=== PATIENT | male | born 1960 | race Caucasian/White ===

== ENCOUNTER → 2019-07-18 | Outpatient (CLI) | payer OTHER ==
[~2019-07-18] MED LIST: OMNIPAQUE 350 MG/ML, 75ML BOTTLE ONE
== END | disposition home or self-care (01) ==
LOC: CFH 08:18
PROVIDERS: ATTEND Internal Medicine Hematology & Oncology
DX: C20 Malignant neoplasm of rectum (principal); K76.0 Fatty (change of) liver, not elsewhere classified; I25.10 Atherosclerotic heart disease of native coronary artery without angina pectoris; M25.78 Osteophyte, vertebrae; N28.1 Cyst of kidney, acquired
CPT/HCPCS: 71260; Q9967

== ENCOUNTER → 2019-07-30 | Outpatient (CLI) | payer OTHER ==
[~2019-07-30] MED LIST changes: +GLIP10TA13 PO; +LISI-170 PO; +METF1000 PO; -OMNIPAQUE 350 MG/ML, 75ML BOTTLE ONE; +PRAV10TA2 PO
== END | disposition home or self-care (01) ==
LOC: WOUND 08:07
PROVIDERS: ATTEND Nurse Practitioner Family
DX: K94.19 Other complications of enterostomy (principal); Z85.038 Personal history of other malignant neoplasm of large intestine
CPT/HCPCS: 99203

== ENCOUNTER 2019-08-01 07:27 | Inpatient (IN) | payer OTHER ==
[~2019-08-01] VITALS: Ht 185.4 cm; Wt 90.0 kg
[2019-08-01] MEDS ORDERED: MIDAZOLAM 1 MG/ML, 2ML ONE (07:37)
[2019-08-01] MEDS ORDERED: FENTANYL PF 250 MCG/5ML ONE ×2 (07:38→12:26)
[2019-08-01] MEDS ORDERED: NEOSTIGMINE 1 MG/ML, 10ML ONE (07:43)
[2019-08-01] MEDS ORDERED: PROPOFOL 10 MG/ML, 20ML ONE (07:43)
[2019-08-01] MEDS ORDERED: ROCURONIUM 10MG/ML,5ML ONE ×2 (07:43→13:58)
[2019-08-01] MEDS ORDERED: GLYCOPYRROLATE 0.2MG/1ML, 5ML ONE (07:43)
[2019-08-01 08:19] VITALS: BP 115/81
[2019-08-01] MEDS ORDERED: LACTATED RINGERS 1,000 ML IV SCH (08:23)
[2019-08-01] MEDS ORDERED: GABAPENTIN 300 MG CAPSULE PO ONE (08:30)
[2019-08-01] MEDS ORDERED: ACETAMINOPHEN 500 MG TABLET PO ONE (08:30)
[2019-08-01] MEDS ORDERED: BUPIVACAINE/PF 0.5% ONE (11:14)
[2019-08-01] MEDS ORDERED: EPINEPHRINE 1 MG/ML, 1ML ONE (11:14)
[2019-08-01] MEDS ORDERED: MORPHINE SULFATE 4 MG/ML, 1ML IVPush PRN ×2 (11:30→18:00)
[2019-08-01] MEDS ORDERED: MEPERIDINE/PF 25MG/ML,1ML IVPush PRN (11:30)
[2019-08-01] MEDS ORDERED: FENTANYL PF 100 MCG/2ML IV PRN (11:30)
[2019-08-01] MEDS ORDERED: ONDANSETRON 2MG/ML, 2ML IV PRN ×2 (11:30→18:00)
[2019-08-01] MEDS ORDERED: hydrALAzine 20 MG/ML, 1ML IV PRN (11:30)
[2019-08-01] MEDS ORDERED: OXYcodone 5 MG/5 ML ORAL.SOL UDC PO PRN (11:30)
[2019-08-01] MEDS ORDERED: LABETALOL 5MG/ML, 20ML IV PRN (11:30)
[2019-08-01] MEDS ORDERED: CEFOTETAN 2 GM ONE (11:35)
[2019-08-01] MEDS ORDERED: METOPROLOL 1 MG/ML, 5ML ONE (12:17)
[2019-08-01] MEDS ORDERED: HYDROmorphone 1 MG/ML, 1ML INJ ONE ×2 (14:59→15:33)
[2019-08-01] MEDS ORDERED: MEPERIDINE/PF 25MG/ML,1ML ONE (15:00)
[2019-08-01] MEDS ORDERED: INDOCYANINE GREEN 25 MG VIAL ONE (15:06)
[2019-08-01] MEDS: HYDROmorphone 2 MG/ML, 1ML IVPush PRN ×3 (15:15→15:39)
[2019-08-01] MEDS ORDERED: LABETALOL 5 MG/ML SYR. (IV ONLY) IV PRN (15:30)
[2019-08-01] MEDS ORDERED: FENTANYL PF 100 MCG/2ML ONE (15:35)
[2019-08-01] MEDS ORDERED: OXYcodone 5 MG/5 ML ORAL.SOL UDC ONE (15:36)
[2019-08-01] MEDS ORDERED: DIPHENHYDRAMINE 50 MG/ML, 1ML IVPush PRN (18:00)
[2019-08-01] MEDS ORDERED: DEXAMETHASONE 4 MG/ML, 1ML IVPush PRN (18:00)
[2019-08-01] MEDS ORDERED: TRAZODONE 50MG TABLET PO PRN (18:00)
[2019-08-01] MEDS ORDERED: LORazepam 1MG TABLET PO PRN (18:00)
[2019-08-01] MEDS ORDERED: CALCIUM CARBONATE 500 MG TAB.CHEW PO PRN (18:00)
[2019-08-01] MEDS ORDERED: DIPHENHYDRAMINE 25 MG CAPSULE PO PRN (18:00)
[2019-08-01] MEDS ORDERED: SCOPOLAMINE PATCH, 1.5MG PATCH.TD72 TD PRN (18:00)
[2019-08-01] MEDS ORDERED: LORazepam 2 MG/ML, 1ML IVPush PRN (18:00)
[2019-08-01] MEDS ORDERED: HALOPERIDOL 5 MG/ML IVPush PRN (18:00)
[2019-08-01] MEDS: KETOROLAC 30 MG/1 ML IVPush SCH (18:16)
[2019-08-01] MEDS: ACETAMINOPHEN 500 MG TABLET PO SCH (18:17)
[2019-08-01 18:55] VITALS: BP 112/78
[2019-08-01] MEDS: OXYcodone IR 5MG TABLET PO PRN (20:35)
[2019-08-01] MEDS: LACTATED RINGERS 1,000 ML IV SCH (23:00)
[2019-08-01 23:39] VITALS: BP 114/77
[2019-08-02] MEDS: KETOROLAC 30 MG/1 ML IVPush SCH ×4 (00:35→17:55)
[2019-08-02] MEDS: ACETAMINOPHEN 500 MG TABLET PO SCH ×4 (00:35→17:55)
[2019-08-02 03:26] VITALS: BP 110/73
[2019-08-02 03:53] LABS: ANION GAP 5 mmol/L (5-15); CHLORIDE 106 mmol/L (98-107); CREATININE 1.38 mg/dL (0.7-1.3)
[2019-08-02 04:02] LABS: BASOPHILS # (AUTO) 0.02 x10^3/uL (0-0.1); BASOPHILS % (AUTO) 0 % (0-1); EOSINOPHILS # (AUTO) 0.04 x10^3/uL (0-0.4); EOSINOPHILS % (AUTO) 1 % (1-7); LYMPHOCYTES # (AUTO) 1.31 x10^3/uL (1-3.4); LYMPHOCYTES % (AUTO) 19 % (22-44); MD NO; MEAN CORPUSCULAR HEMOGLOBIN 35.2 pg (27.5-34.5); MEAN CORPUSCULAR HGB CONC 33.3 g/dL (33.2-36.2); MEAN CORPUSCULAR VOLUME 105.8 fL (81-97); MEAN PLATELET VOLUME 8.6 fL (7.4-10.4); MONOCYTES # (AUTO) 1.02 x10^3/uL (0.2-0.8); MONOCYTES % (AUTO) 15 % (2-9); NEUTROPHILS # (AUTO) 4.46 x10^3/uL (1.8-6.8); NEUTROPHILS % (AUTO) 65 % (42-75); PLATELET COUNT 129 x10^3/uL (130-400); RED BLOOD COUNT 4.23 x10^6/uL (4.38-5.82); RED CELL DISTRIBUTION WIDTH 12.2 % (9.4-14.8)
[2019-08-02] MEDS: OXYcodone IR 5MG TABLET PO PRN ×4 (04:10→21:31)
[2019-08-02 07:20] VITALS: BP 111/72
[2019-08-02] MEDS: ENOXAPARIN 40 MG/0.4 ML SQ SCH (09:06)
[2019-08-02 14:43] VITALS: BP 115/76
[2019-08-02] MEDS: LACTATED RINGERS 1,000 ML IV SCH (17:59)
[2019-08-02 19:38] VITALS: BP 117/76
[2019-08-03] MEDS: ACETAMINOPHEN 500 MG TABLET PO SCH ×4 (00:43→17:06)
[2019-08-03] MEDS: KETOROLAC 30 MG/1 ML IVPush SCH ×4 (00:43→17:06)
[2019-08-03 02:13] VITALS: BP 110/72
[2019-08-03 03:20] LABS: BASOPHILS # (AUTO) 0.03 x10^3/uL (0-0.1); BASOPHILS % (AUTO) 1 % (0-1); EOSINOPHILS # (AUTO) 0.14 x10^3/uL (0-0.4); EOSINOPHILS % (AUTO) 3 % (1-7); LYMPHOCYTES # (AUTO) 1.56 x10^3/uL (1-3.4); LYMPHOCYTES % (AUTO) 28 % (22-44); MD NO; MEAN CORPUSCULAR HEMOGLOBIN 35.6 pg (27.5-34.5); MEAN CORPUSCULAR HGB CONC 33.7 g/dL (33.2-36.2); MEAN CORPUSCULAR VOLUME 105.5 fL (81-97); MEAN PLATELET VOLUME 8.5 fL (7.4-10.4); MONOCYTES # (AUTO) 0.77 x10^3/uL (0.2-0.8); MONOCYTES % (AUTO) 14 % (2-9); NEUTROPHILS # (AUTO) 3.06 x10^3/uL (1.8-6.8); NEUTROPHILS % (AUTO) 55 % (42-75); PLATELET COUNT 111 x10^3/uL (130-400); RED BLOOD COUNT 3.69 x10^6/uL (4.38-5.82); RED CELL DISTRIBUTION WIDTH 12.3 % (9.4-14.8)
[2019-08-03 03:28] LABS: ANION GAP 4 mmol/L (5-15); CALCIUM 8.7 mg/dL (8.5-10.1); CHLORIDE 106 mmol/L (98-107)
[2019-08-03 03:30] LABS: CREATININE 1.04 mg/dL (0.7-1.3)
[2019-08-03 07:55] VITALS: BP 112/75
[2019-08-03] MEDS: OXYcodone IR 5MG TABLET PO PRN ×3 (08:20→21:10)
[2019-08-03] MEDS: ENOXAPARIN 40 MG/0.4 ML SQ SCH (08:20)
[2019-08-03 14:16] VITALS: BP 129/76
[2019-08-03] MEDS: LACTATED RINGERS 1,000 ML IV SCH (14:17)
[2019-08-03 20:00] VITALS: BP 132/77
[2019-08-04] MEDS: ACETAMINOPHEN 500 MG TABLET PO SCH ×2 (00:18→06:11)
[2019-08-04] MEDS: KETOROLAC 30 MG/1 ML IVPush SCH ×2 (00:18→06:11)
[2019-08-04] MEDS: OXYcodone IR 5MG TABLET PO PRN ×3 (00:24→09:48)
[2019-08-04 01:50] VITALS: BP 120/81
[2019-08-04 03:35] LABS: BASOPHILS # (AUTO) 0.02 x10^3/uL (0-0.1); BASOPHILS % (AUTO) 0 % (0-1); EOSINOPHILS # (AUTO) 0.18 x10^3/uL (0-0.4); EOSINOPHILS % (AUTO) 3 % (1-7); LYMPHOCYTES # (AUTO) 1.56 x10^3/uL (1-3.4); LYMPHOCYTES % (AUTO) 30 % (22-44); MD NO; MEAN CORPUSCULAR HEMOGLOBIN 34.7 pg (27.5-34.5); MEAN CORPUSCULAR HGB CONC 33.4 g/dL (33.2-36.2); MEAN CORPUSCULAR VOLUME 103.8 fL (81-97); MONOCYTES % (AUTO) 13 % (2-9); NEUTROPHILS # (AUTO) 2.76 x10^3/uL (1.8-6.8); NEUTROPHILS % (AUTO) 53 % (42-75); PLATELET COUNT 120 x10^3/uL (130-400); RED CELL DISTRIBUTION WIDTH 12.3 % (9.4-14.8)
[2019-08-04 03:44] LABS: ANION GAP 4 mmol/L (5-15); CALCIUM 8.8 mg/dL (8.5-10.1); CHLORIDE 109 mmol/L (98-107); CREATININE 0.92 mg/dL (0.7-1.3)
[2019-08-04 07:48] VITALS: BP 115/75
[2019-08-04] MEDS: ENOXAPARIN 40 MG/0.4 ML SQ SCH (08:12)
[2019-08-04] MEDS ORDERED: OXYC-302 PO (09:34)
[2019-08-04] MEDS ORDERED: IBUP-1222 PO (09:35)
[2019-08-04] MEDS ORDERED: LOPE-114 PO (09:36)
[2019-08-04] MEDS: LACTATED RINGERS 1,000 ML IV SCH (11:29)
== END 2019-08-04 11:49 | disposition home or self-care (01) | DRG 331 ==
LOC: ORIP 07:27 → 4NE 16:54
PROVIDERS: ADMIT Colon & Rectal Surgery; ATTEND Colon & Rectal Surgery
PROC: 0DTN0ZZ Resection of Sigmoid Colon, Open Approach (ICD-10-PCS; 2019-08-01)
PROC: 8E0W0CZ Robotic Assisted Procedure of Trunk Region, Open Approach (ICD-10-PCS; 2019-08-01)
PROC: 3E0T3BZ Introduction of Anesthetic Agent into Peripheral Nerves and Plexi, Percutaneous Approach (ICD-10-PCS; 2019-08-01)
PROC: 0DBB0ZZ Excision of Ileum, Open Approach (ICD-10-PCS; principal; 2019-08-01 09:30)
DX: C20 Malignant neoplasm of rectum (principal); E11.9 Type 2 diabetes mellitus without complications; I10 Essential (primary) hypertension; E78.5 Hyperlipidemia, unspecified; E78.00 Pure hypercholesterolemia, unspecified; M19.90 Unspecified osteoarthritis, unspecified site; Z83.3 Family history of diabetes mellitus; Z82.3 Family history of stroke; Z82.49 Family history of ischemic heart disease and other diseases of the circulatory system; Z87.891 Personal history of nicotine dependence
CPT/HCPCS: 36415; J3490; S0020; 80048; 82962; 83735; 85025; 86850; 86900; 88309; 93005; C1729; G0378; J0171; J1170; J1650; J1885; J2250; J2704; J2710; J3010; J2175; J7120

== ENCOUNTER → 2019-08-09 | Outpatient (CLI) | payer OTHER ==
[~2019-08-09] MED LIST changes: +IBUP-1222 PO; +LOPE-114 PO; +OXYC-302 PO
== END | disposition home or self-care (01) ==
LOC: WOUND 12:56
PROVIDERS: ATTEND Family Medicine
DX: K94.19 Other complications of enterostomy (principal); Z85.038 Personal history of other malignant neoplasm of large intestine
CPT/HCPCS: 99212

== ENCOUNTER → 2019-10-14 | Outpatient (CLI) | payer OTHER | END | disposition home or self-care (01) | LOC: RAD 12:32 | PROVIDERS: ATTEND Colon & Rectal Surgery | DX: N20.0 Calculus of kidney (principal); M16.11 Unilateral primary osteoarthritis, right hip | CPT/HCPCS: 74270 ==

== ENCOUNTER 2019-10-25 08:32 | Outpatient (CLI) | payer OTHER | END 2019-10-25 23:59 | disposition home or self-care (01) | LOC: STAR 08:32 | PROVIDERS: ATTEND Colon & Rectal Surgery | DX: Z02.9 Encounter for administrative examinations, unspecified (principal) ==

== ENCOUNTER 2020-01-28 10:50 | Outpatient (CLI) | payer OTHER ==
[2020-01-28] MEDS ORDERED: LISI-167 PO (11:33)
[2020-01-28 11:54] LABS: ALBUMIN 4.2 g/dL (3.4-5.0); ANION GAP 7 mmol/L (5-15); CALCIUM 9.3 mg/dL (8.5-10.1); CHLORIDE 104 mmol/L (98-107)
[2020-01-28 11:57] LABS: ALANINE AMINOTRANSFERASE 52 U/L (12-78); ALKALINE PHOSPHATASE 66 U/L (45-117); BILIRUBIN,TOTAL 0.7 mg/dL (0.2-1.0); CREATININE 1.06 mg/dL (0.7-1.3)
== END 2020-01-28 23:59 | disposition home or self-care (01) ==
LOC: STAR 10:50
PROVIDERS: ATTEND Colon & Rectal Surgery
DX: Z01.818 Encounter for other preprocedural examination (principal); Z93.2 Ileostomy status
CPT/HCPCS: 36415; 80053; 93005

== ENCOUNTER 2020-02-06 06:54 | Inpatient (IN) | payer OTHER ==
[~2020-02-06] VITALS: Ht 185.4 cm; Wt 91.0 kg
[~2020-02-06 06:54] MED LIST changes: +BUPIVACAINE/EPI 0.5% 1:200K ONE; +LISI-167 PO
[2020-02-06] MEDS ORDERED: LACTATED RINGERS 1,000 ML IV SCH ×2 (07:07→11:30)
[2020-02-06] MEDS ORDERED: CHLORHEXIDINE 15 ML UDC MM STA (07:07)
[2020-02-06] MEDS ORDERED: CHLORHEXIDINE 15 ML UDC ONE (07:27)
[2020-02-06] MEDS ORDERED: MIDAZOLAM 1 MG/ML, 2ML ONE (08:29)
[2020-02-06] MEDS ORDERED: FENTANYL PF 250 MCG/5ML ONE (08:29)
[2020-02-06] MEDS ORDERED: INSULIN SINGLE DOSE, ER ONE (09:16)
[2020-02-06] MEDS ORDERED: PROMETHAZINE 25 MG/ML, 1ML IV PRN (09:30)
[2020-02-06] MEDS ORDERED: ALBUTEROL SULFATE 2.5 MG/3 ML NPPB PRN (09:30)
[2020-02-06] MEDS ORDERED: LABETALOL 5MG/ML, 20ML IV PRN (09:30)
[2020-02-06] MEDS ORDERED: OXYcodone 5 MG/5 ML ORAL.SOL UDC PO PRN (09:30)
[2020-02-06] MEDS ORDERED: MEPERIDINE/PF 25MG/0.5ML IVPush PRN (09:30)
[2020-02-06] MEDS ORDERED: ACETAMINOPHEN 325 MG TABLET PO PRN (09:30)
[2020-02-06] MEDS ORDERED: hydrALAzine 20 MG/ML, 1ML IV PRN (09:30)
[2020-02-06] MEDS ORDERED: KETOROLAC 30 MG/1 ML IV PRN (09:30)
[2020-02-06] MEDS ORDERED: DIAZEPAM 5 MG/ML, 2ML IVPush PRN (09:30)
[2020-02-06] MEDS ORDERED: ROCURONIUM 10MG/ML,5ML ONE (10:10)
[2020-02-06] MEDS ORDERED: GLYCOPYRROLATE 0.2MG/1ML, 5ML ONE (10:10)
[2020-02-06] MEDS ORDERED: ONDANSETRON 2MG/ML, 2ML ONE (10:10)
[2020-02-06] MEDS ORDERED: DEXAMETHASONE 4 MG/ML, 1ML ONE (10:10)
[2020-02-06] MEDS ORDERED: NEOSTIGMINE 1 MG/ML, 10ML ONE (10:10)
[2020-02-06] MEDS ORDERED: CEFAZOLIN 1,000 MG ONE (10:10)
[2020-02-06] MEDS ORDERED: PROPOFOL 10 MG/ML, 20ML ONE (10:10)
[2020-02-06] MEDS ORDERED: SUCCINYLCHOLINE 20 MG/ML, 10ML ONE (10:10)
[2020-02-06] MEDS ORDERED: FENTANYL PF 100 MCG/2ML ONE (10:16)
[2020-02-06] MEDS ORDERED: OXYcodone 5 MG/5 ML ORAL.SOL UDC ONE ×2 (10:16→10:20)
[2020-02-06] MEDS: FENTANYL PF 100 MCG/2ML IV PRN ×2 (10:17→10:23)
[2020-02-06] MEDS ORDERED: hydrALAzine 20 MG/ML, 1ML ONE (10:19)
[2020-02-06] MEDS ORDERED: HYDROmorphone 1 MG/ML, 1ML INJ ONE (10:27)
[2020-02-06] MEDS: HYDROmorphone 2 MG/ML, 1ML IVPush PRN ×2 (10:28→10:35)
[2020-02-06] MEDS ORDERED: KETOROLAC 30 MG/1 ML ONE (11:05)
[2020-02-06] MEDS ORDERED: KETOROLAC 30 MG/1 ML IVPush ONE (11:30)
[2020-02-06] MEDS ORDERED: DIPHENHYDRAMINE 50 MG/ML, 1ML IVPush PRN (14:00)
[2020-02-06] MEDS ORDERED: OXYcodone IR 5MG TABLET PO PRN (14:00)
[2020-02-06] MEDS ORDERED: HALOPERIDOL 5 MG/ML IVPush PRN (14:00)
[2020-02-06] MEDS ORDERED: DIPHENHYDRAMINE 25 MG CAPSULE PO PRN (14:00)
[2020-02-06] MEDS ORDERED: DEXAMETHASONE 4 MG/ML, 1ML IVPush PRN (14:00)
[2020-02-06] MEDS ORDERED: LORazepam 2 MG/ML, 1ML IVPush PRN (14:00)
[2020-02-06] MEDS ORDERED: MORPHINE SULFATE 4 MG/ML, 1ML IVPush PRN (14:00)
[2020-02-06] MEDS ORDERED: SCOPOLAMINE 1MG PATCH TD PRN (14:00)
[2020-02-06] MEDS ORDERED: LORazepam 1MG TABLET PO PRN (14:00)
[2020-02-06] MEDS ORDERED: CALCIUM CARBONATE 500 MG TAB.CHEW PO PRN (14:00)
[2020-02-06] MEDS ORDERED: ONDANSETRON 2MG/ML, 2ML IV PRN (14:00)
[2020-02-06] MEDS ORDERED: TRAZODONE 50MG TABLET PO PRN (14:00)
[2020-02-06 14:19] VITALS: BP 111/80
[2020-02-06] MEDS: SODIUM CHLORIDE FLUSH 3ML SYRINGE IVF SCH ×2 (16:51→21:00)
[2020-02-06] MEDS: KETOROLAC 30 MG/1 ML IVPush SCH ×2 (16:51→23:22)
[2020-02-06] MEDS: ACETAMINOPHEN 500 MG TABLET PO SCH ×2 (17:05→23:22)
[2020-02-06 19:36] VITALS: BP 108/71
[2020-02-06] MEDS ORDERED: PRAVASTATIN 20 MG TABLET PO SCH (21:00)
[2020-02-07 00:11] VITALS: BP 126/72
[2020-02-07 04:26] VITALS: BP 110/72
[2020-02-07] MEDS: ACETAMINOPHEN 500 MG TABLET PO SCH ×2 (05:49→11:16)
[2020-02-07] MEDS: KETOROLAC 30 MG/1 ML IVPush SCH ×2 (05:49→11:16)
[2020-02-07 05:51] LABS: ALBUMIN 3.7 g/dL (3.4-5.0); ANION GAP 9 mmol/L (5-15); CALCIUM 8.7 mg/dL (8.5-10.1); CHLORIDE 97 mmol/L (98-107); CREATININE 1.18 mg/dL (0.7-1.3)
[2020-02-07 05:53] LABS: BASOPHILS # (AUTO) 0.01 x10^3/uL (0-0.1); BASOPHILS % (AUTO) 0 % (0-1); EOSINOPHILS # (AUTO) 0.04 x10^3/uL (0-0.4); EOSINOPHILS % (AUTO) 1 % (1-7); LYMPHOCYTES # (AUTO) 1.42 x10^3/uL (1-3.4); LYMPHOCYTES % (AUTO) 24 % (22-44); MD NO; MEAN CORPUSCULAR HGB CONC 33.8 g/dL (33.2-36.2); MEAN CORPUSCULAR VOLUME 103.6 fL (81-97); MEAN PLATELET VOLUME 9.2 fL (7.4-10.4); MONOCYTES # (AUTO) 0.74 x10^3/uL (0.2-0.8); MONOCYTES % (AUTO) 12 % (2-9); NEUTROPHILS # (AUTO) 3.74 x10^3/uL (1.8-6.8); NEUTROPHILS % (AUTO) 63 % (42-75); PLATELET COUNT 113 x10^3/uL (130-400); RED BLOOD COUNT 3.98 x10^6/uL (4.38-5.82); RED CELL DISTRIBUTION WIDTH 12.2 % (9.4-14.8)
[2020-02-07 06:38] VITALS: BP 113/71
[2020-02-07] MEDS: SODIUM CHLORIDE FLUSH 3ML SYRINGE IVF SCH (08:20)
[2020-02-07] MEDS ORDERED: LISINOPRIL 10 MG TABLET PO SCH (09:00)
[2020-02-07] MEDS ORDERED: ENOXAPARIN 40 MG/0.4 ML SQ SCH (09:00)
== END 2020-02-07 14:50 | disposition home or self-care (01) | DRG 331 ==
LOC: ORIP 06:54 → 4NE 13:28
PROVIDERS: ADMIT Colon & Rectal Surgery; ATTEND Colon & Rectal Surgery
PROC: 0DBB0ZZ Excision of Ileum, Open Approach (ICD-10-PCS; principal; 2020-02-06 09:00)
DX: Z43.2 Encounter for attention to ileostomy (principal); Z20.828 Contact with and (suspected) exposure to other viral communicable diseases
CPT/HCPCS: 36415; 80048; 82040; 82962; 83735; 85025; 87635; 88304; G0378; J0690; J1100; J1170; J1650; J1885; J2250; J2405; J2704; J2710; J3010; J0330; J0360; J1815; J7120